=== PATIENT | female | born 1945 | race Caucasian/White ===

== ENCOUNTER → 2017-02-22 | Outpatient (CLI) | payer MEDICARE ==
[~2017-02-22] MED LIST: BUPR150T6 PO; LISI-167 PO; LOVA40TA2 PO; MODA100T22 PO
== END | disposition home or self-care (01) ==
LOC: CFH 10:11
PROVIDERS: ATTEND Internal Medicine
DX: Z12.31 Encounter for screening mammogram for malignant neoplasm of breast (principal); Z13.820 Encounter for screening for osteoporosis; M89.9 Disorder of bone, unspecified; N95.1 Menopausal and female climacteric states
CPT/HCPCS: 77080; G0202

== ENCOUNTER → 2019-01-27 | Outpatient (CLI) | payer MEDICARE | END | disposition home or self-care (01) | LOC: CFH 13:25 | PROVIDERS: ATTEND Licensed Practical Nurse | DX: M89.9 Disorder of bone, unspecified (principal); N95.8 Other specified menopausal and perimenopausal disorders | CPT/HCPCS: 77080 ==